=== PATIENT | female | born 1995 | race Caucasian/White ===

== ENCOUNTER 2022-12-16 20:23 | Emergency (ER) | payer BC, SELFPAY ==
[2022-12-16] MEDS ORDERED: diphenhydrAMINE 50 MG/ML VIAL ONE (22:03)
[2022-12-16] MEDS ORDERED: Lactated Ringer's 1,000 ML ONE (22:03)
[2022-12-16 22:07] LABS: #Basophils 0.1 thou/uL (0.0-0.2); #Lymphocytes 2.8 thou/uL (1.20-3.40); #Monocytes 0.6 thou/uL (0.11-0.59); #Neutrophils 5.3 thou/uL (1.40-6.50); %Basophils 0.7 % (0.0-1.0); %Eosinophils 0.3 % (0.0-10.0); %Lymphocytes 31.7 % (21.0-51.0); %Monocytes 6.6 % (0.0-10.0); %Neutrophils 60.7 % (42.0-75.0); Anisocytosis SLIGHT = 6-15 cells (100X) (0-5/hpf); Hemoglobin 9.6 g/dL (12.0-16.0); MDiff Complete? YES; Mean Corpuscular HGB CONC 32.3 g/dL (32.0-36.0); Mean Corpuscular Hemoglobin 23.4 pg (27.0-31.0); Mean Corpuscular Volume 72.3 fl (78.0-98.0); Mean Platelet Volume 8.8 fL (7.4-10.4); Microcytosis SLIGHT = 6-15 cells (100X) (0-5/hpf); Ovalocytes SLIGHT = 2-5 cells (100X) (0-1/hpf); Platelet Count 271 10x3/uL (130-400); Platelet Morphology Comment Appears Adequate; RBC Distribution Width 18.2 % (11.5-14.5); White Blood Cell (WBC) Count 8.7 10x3/uL (4.8-10.8)
[2022-12-16 22:17] LABS: ALT (SGPT) 13 U/L (8-55); AST (SGOT) 13 U/L (5-34); Albumin 4.1 g/dL (3.5-5.0); Alkaline Phosphatase 67 U/L (40-110); Anion Gap 15 mmol/L (10-20); BUN (Urea Nitrogen) 12 mg/dL (7.0-18.7); Bilirubin, Total Less than 0.2 mg/dL (0.2-1.2); Calc. Creatinine Clearance 0 mL/min (70-130); Calcium 8.9 mg/dL (7.8-10.44); Carbon Dioxide 21 mmol/L (22-29); Chloride 109 mmol/L (98-107); Estimated GFR 116; Globulin 2.7 g/dL (2.4-3.5); Glucose 105 mg/dL (70-105); Lipase 15 U/L (8-78); Potassium 3.5 mmol/L (3.5-5.1); Protein, Total 6.8 g/dL (6.0-8.3); Sodium 141 mmol/L (136-145)
[2022-12-16] MEDS ORDERED: HYDROmorphone 0.5 MG/0.5 ML SYRINGE ONE ×2 (22:18→23:46)
== END 2022-12-17 02:03 | disposition home or self-care (01) ==
LOC: MADERS 20:23
DX: K86.1 Other chronic pancreatitis (principal); D64.9 Anemia, unspecified; Z79.899 Other long term (current) drug therapy; Z86.711 Personal history of pulmonary embolism
CPT/HCPCS: 80053; 83690; 85025; 96361; 96374; 96375; 96376; J1170; J1200; J7120